=== PATIENT | female | born 1970 | race African-American/Black ===

== ENCOUNTER 2018-05-07 10:46 | Emergency (ER) | payer MEDICAID ==
[~2018-05-07] VITALS: Ht 170.2 cm; Wt 136.1 kg
[2018-05-07 10:48] VITALS: Ht 170.2 cm; Wt 136.1 kg
[2018-05-07 12:30] VITALS: BP 140/88
== END 2018-05-07 12:45 | disposition home or self-care (01) ==
LOC: ED 10:46
DX: T78.49XA Other allergy, initial encounter (principal); X58.XXXA Exposure to other specified factors, initial encounter
CPT/HCPCS: J7512; Q0163